=== PATIENT | male | born 1990 | race Caucasian/White ===

== ENCOUNTER 2017-10-27 10:12 | Emergency (ER) | payer OTHER ==
[~2017-10-27] VITALS: Ht 180.3 cm; Wt 99.8 kg
[~2017-10-27 10:12] MED LIST: ALBUTEROL INH INH; HYDROCODONE-AP1 EAC6 PO; LISINOPRIL10 MG; PHENERGAN 25 MG25 M1 PO; PREDNISONE50 MG PO; PRILOSEC 20 MG20 MG PO; PROAIR HFA8.5 GM IH; PROZAC 20 MG20 M1 PO; PROZAC20 MG; RESTORIL; STRATTERA PO; VALIUM5 MG PO; VISTARIL 25 MG25 M1 PO; ZOFRAN ODT4 MG PO; [UNRECOGNIZED DRUG - OTHER] PO
[2017-10-27] MEDS ORDERED: ZOLOFT100 MG PO (10:35)
[2017-10-27] MEDS ORDERED: METOPROLOL SUCC25 M1 PO (10:36)
[2017-10-27] MEDS ORDERED: QUETIAPINE FUM100 MG PO (10:36)
[2017-10-27] MEDS ORDERED: HYDROCODONE-AP1 EAC6 PO (12:29)
[2017-10-27] MEDS ORDERED: IBUPROFEN 600600 M1 PO (12:30)
[2017-10-27 12:56] VITALS: BP 142/98
== END 2017-10-27 12:57 | disposition home or self-care (01) ==
LOC: M.ERS 10:12
DX: M79.671 Pain in right foot (principal); J45.909 Unspecified asthma, uncomplicated; I10 Essential (primary) hypertension; F41.9 Anxiety disorder, unspecified; F17.210 Nicotine dependence, cigarettes, uncomplicated

== ENCOUNTER 2018-10-05 22:11 | Emergency (ER) | payer OTHER ==
[~2018-10-05] VITALS: Ht 182.9 cm; Wt 97.5 kg
[~2018-10-05 22:11] MED LIST changes: +IBUPROFEN 600600 M1 PO; +METOPROLOL SUCC25 M1 PO; +QUETIAPINE FUM100 MG PO; +ZOLOFT100 MG PO
[2018-10-05] MEDS ORDERED: OXYBUTYNIN 5 MG5 M2 PO (22:34)
[2018-10-05] MEDS ORDERED: OXYCODONE HCL 55 MG PO (22:34)
[2018-10-05] MEDS ORDERED: FLOMAX0.4 MG PO (22:34)
[2018-10-05 23:36] LABS: URINE BILIRUBIN NEGATIVE (Negative); URINE BLOOD 3+ (Negative); URINE CLARITY CLEAR; URINE COLOR YELLOW; URINE GLUCOSE-RANDOM NEGATIVE (Negative); URINE KETONES NEGATIVE (Negative); URINE LEUKOCYTES-REFLEX TRACE (Negative); URINE NITRITE-REFLEX NEGATIVE (Negative); URINE PROTEIN 1+ (Negative); URINE UROBILINOGEN 0.2 E.U./dl (0.2-1.0)
[2018-10-06 00:10] LABS: INFLUENZA A ANTIGEN None Detected (None Detect); INFLUENZA B ANTIGEN None Detected (None Detect)
[2018-10-06 00:13] LABS: CASTS None Seen /LPF (None Seen); SQUAMOUS NONE SEEN /LPF (0-3)
[2018-10-06 00:14] LABS: BACTERIA-REFLEX 1-9 Few /HPF (None Seen); URINE RBC >20 Many /HPF (0-2); URINE WBC-REFLEX 0-5 Rare /HPF (0-5)
[2018-10-06 00:16] LABS: CRYSTALS None Seen /LPF (None Seen)
[2018-10-06] MEDS ORDERED: KEFLEX500 M1 PO (00:21)
[2018-10-06] MEDS ORDERED: ZOFRAN 4 MG ORAL4 MG PO (00:21)
[2018-10-06] MEDS ORDERED: NORCO 5-325 TA1 EACH PO ×2 (00:21)
[2018-10-06 00:37] VITALS: BP 143/94
== END 2018-10-06 00:37 | disposition home or self-care (01) ==
LOC: M.ERS 22:11
PROVIDERS: Nurse Practitioner Psychiatric/Mental Health
DX: N39.0 Urinary tract infection, site not specified (principal); J00 Acute nasopharyngitis [common cold]; J45.909 Unspecified asthma, uncomplicated; F17.210 Nicotine dependence, cigarettes, uncomplicated; F41.0 Panic disorder [episodic paroxysmal anxiety]; I10 Essential (primary) hypertension; Z87.442 Personal history of urinary calculi

== ENCOUNTER 2018-10-24 01:52 | Emergency (ER) | payer OTHER ==
[~2018-10-24] VITALS: Ht 182.9 cm; Wt 93.0 kg
[~2018-10-24 01:52] MED LIST changes: +FLOMAX0.4 MG PO; +KEFLEX500 M1 PO; +NORCO 5-325 TA1 EACH PO; +OXYBUTYNIN 5 MG5 M2 PO; +OXYCODONE HCL 55 MG PO; +ZOFRAN 4 MG ORAL4 MG PO
[2018-10-24] MEDS ORDERED: ADDERALL 20 MG20 M1 (02:10)
[2018-10-24] MEDS ORDERED: VALIUM5 MG (02:10)
[2018-10-24] MEDS ORDERED: SEROQUEL XR150 MG (02:11)
[2018-10-24 02:27] LABS: ABSOLUTE EOSINOPHILS 0.3 thou/uL (0.0-0.7); ABSOLUTE LYMPHOCYTES 3.3 thou/uL (0.8-5.3); ABSOLUTE MONOCYTES 0.5 thou/uL (0.0-1.2); ABSOLUTE NEUTROPHILS 3.1 thou/uL (1.6-8.1); BASOPHILS 0.6 %; EOSINOPHILS 3.7 %; HEMATOCRIT 40.9 % (42.0-52.0); LYMPHOCYTES 46.3 %; MCH 31.4 pg (26.0-34.0); MCHC 34.2 g/dL (28.0-37.0); MCV 91.8 fL (80.0-100.0); MONOCYTES 6.4 %; MPV 10.1 fl. (7.2-11.1); NUCLEATED RBCS 0 /100WBC; PLATELET COUNT* 256 thou/uL (150-400); RBC 4.46 mil/uL (4.50-6.00); RDW-CV 12.7 % (10.5-14.5); WBC 7.1 thou/uL (4.0-11.0)
[2018-10-24 02:30] LABS: URINE BILIRUBIN NEGATIVE (Negative); URINE BLOOD 3+ (Negative); URINE CLARITY CLEAR; URINE COLOR YELLOW; URINE GLUCOSE-RANDOM NEGATIVE (Negative); URINE KETONES 1+ (Negative); URINE LEUKOCYTES-REFLEX NEGATIVE (Negative); URINE NITRITE-REFLEX NEGATIVE (Negative); URINE PROTEIN 2+ (Negative); URINE SPECIFIC GRAVITY >= 1.030 (1.005-1.030); URINE UROBILINOGEN 0.2 E.U./dl (0.2-1.0)
[2018-10-24 02:34] LABS: ALBUMIN 3.5 g/dL (3.4-5.0); CALCIUM 8.7 mg/dL (8.5-10.1); CREATININE 1.1 mg/dL (0.6-1.3); POTASSIUM 3.7 mmol/L (3.5-5.1); TOTAL BILIRUBIN 0.2 mg/dL (<0.1-1.0); TOTAL PROTEIN 6.6 g/dL (6.4-8.2)
[2018-10-24 02:48] LABS: BACTERIA-REFLEX 1-9 Few /HPF (None Seen); CASTS None Seen /LPF (None Seen); CRYSTALS None Seen /LPF (None Seen); MUCUS 0-3 Light strn/LPF (None Seen); SQUAMOUS 0-3 Few /LPF (0-3); URINE RBC >20 Many /HPF (0-2); URINE WBC-REFLEX 0-5 Rare /HPF (0-5)
[2018-10-24] MEDS ORDERED: PERCOCET 5-3251 EACH PO (03:40)
[2018-10-24 04:05] VITALS: BP 116/66
== END 2018-10-24 04:05 | disposition home or self-care (01) ==
LOC: M.ERS 01:52
PROVIDERS: Family Medicine
DX: R10.9 Unspecified abdominal pain (principal); R11.2 Nausea with vomiting, unspecified; F17.210 Nicotine dependence, cigarettes, uncomplicated; J45.909 Unspecified asthma, uncomplicated; I10 Essential (primary) hypertension; F41.0 Panic disorder [episodic paroxysmal anxiety]; Z87.442 Personal history of urinary calculi

== ENCOUNTER 2018-12-19 19:59 | Emergency (ER) | payer OTHER ==
[~2018-12-19] VITALS: Ht 182.9 cm; Wt 93.0 kg
[~2018-12-19 19:59] MED LIST changes: +ADDERALL 20 MG20 M1; +PERCOCET 5-3251 EACH PO; +SEROQUEL XR150 MG; +VALIUM5 MG
[2018-12-19 21:02] LABS: URINE BLOOD NEGATIVE (Negative); URINE CLARITY CLEAR; URINE COLOR YELLOW; URINE GLUCOSE-RANDOM NEGATIVE (Negative); URINE KETONES 2+ (Negative); URINE LEUKOCYTES-REFLEX NEGATIVE (Negative); URINE NITRITE-REFLEX NEGATIVE (Negative); URINE PROTEIN NEGATIVE (Negative); URINE UROBILINOGEN 0.2 E.U./dl (0.2-1.0)
[2018-12-19 21:03] LABS: URINE BILIRUBIN 1+ (Negative)
[2018-12-19 21:05] LABS: ICTOTEST (BILI CONFIRMATORY) Negative (Negative)
[2018-12-19 21:06] VITALS: BP 130/92
[2018-12-19 21:10] LABS: AMP/METHAMP Negative (Negative); BARBITURATES Negative (Negative); BENZODIAZEPINES POSITIVE (Negative); COCAINE Negative (Negative); METHADONE Negative (Negative); OPIATES Negative (Negative); PCP Negative (Negative); THC Negative (Negative)
== END 2018-12-19 21:06 | disposition home or self-care (01) ==
LOC: M.ERS 19:59
PROVIDERS: Physician Assistant
DX: F41.0 Panic disorder [episodic paroxysmal anxiety] (principal); I10 Essential (primary) hypertension; J45.909 Unspecified asthma, uncomplicated; F17.210 Nicotine dependence, cigarettes, uncomplicated; Z87.442 Personal history of urinary calculi; Z79.899 Other long term (current) drug therapy

== ENCOUNTER 2019-09-11 13:59 | Emergency (ER) | payer OTHER ==
[~2019-09-11] VITALS: Ht 182.9 cm; Wt 79.4 kg
[2019-09-11] MEDS ORDERED: TYLENOL WITH CO1 TA1 PO (16:09)
[2019-09-11] MEDS ORDERED: KEFLEX500 M1 PO (16:09)
[2019-09-11 16:29] VITALS: BP 136/78
== END 2019-09-11 16:30 | disposition home or self-care (01) ==
LOC: M.ERS 13:59
DX: S61.422A Laceration with foreign body of left hand, initial encounter (principal); I10 Essential (primary) hypertension; F41.9 Anxiety disorder, unspecified; J45.909 Unspecified asthma, uncomplicated; F17.210 Nicotine dependence, cigarettes, uncomplicated; Z87.442 Personal history of urinary calculi; W26.8XXA Contact with other sharp object(s), not elsewhere classified, initial encounter; Y92.89 Other specified places as the place of occurrence of the external cause; Y93.89 Activity, other specified; Y99.8 Other external cause status

== ENCOUNTER 2020-09-13 00:58 | Emergency (ER) | payer OTHER ==
[~2020-09-13] VITALS: Ht 182.9 cm; Wt 70.3 kg
[~2020-09-13 00:58] MED LIST changes: +TYLENOL WITH CO1 TA1 PO
[2020-09-13 03:15] VITALS: BP 155/87
== END 2020-09-13 03:15 | disposition home or self-care (01) ==
LOC: M.ERS 00:58
DX: S61.210A Laceration without foreign body of right index finger without damage to nail, initial encounter (principal); F17.210 Nicotine dependence, cigarettes, uncomplicated; J45.909 Unspecified asthma, uncomplicated; I10 Essential (primary) hypertension; W45.8XXA Other foreign body or object entering through skin, initial encounter; Y93.89 Activity, other specified; Y92.89 Other specified places as the place of occurrence of the external cause; Y99.9 Unspecified external cause status

== ENCOUNTER 2021-03-18 19:13 | Emergency (ER) | payer OTHER ==
[~2021-03-18] VITALS: Ht 185.4 cm; Wt 81.7 kg
[2021-03-18 19:17] VITALS: BP 157/105
[2021-03-18 19:27] LABS: URINE BILIRUBIN NEGATIVE (Negative); URINE BLOOD NEGATIVE (Negative); URINE CLARITY CLEAR; URINE COLOR YELLOW; URINE GLUCOSE-RANDOM NEGATIVE (Negative); URINE KETONES NEGATIVE (Negative); URINE LEUKOCYTES-REFLEX NEGATIVE (Negative); URINE NITRITE-REFLEX NEGATIVE (Negative); URINE PROTEIN NEGATIVE (Negative); URINE SPECIFIC GRAVITY 1.015 (1.005-1.030); URINE UROBILINOGEN 0.2 E.U./dl (0.2-1.0)
[2021-03-18] MEDS ORDERED: FLOMAX0.4 MG PO (23:07)
[2021-03-18] MEDS ORDERED: ZOFRAN ODT4 MG PO (23:07)
[2021-03-18] MEDS ORDERED: ACETAMINOPHEN-1 EAC2 PO (23:07)
[2021-03-18] MEDS ORDERED: TORADOL 10 MG T10 MG PO (23:10)
== END 2021-03-18 23:36 | disposition home or self-care (01) ==
LOC: M.ERS 19:13
PROVIDERS: Personal Emergency Response Attendant
DX: R10.11 Right upper quadrant pain (principal); J45.909 Unspecified asthma, uncomplicated; I12.9 Hypertensive chronic kidney disease with stage 1 through stage 4 chronic kidney disease, or unspecified chronic kidney disease; N18.30 Chronic kidney disease, stage 3 unspecified; F17.210 Nicotine dependence, cigarettes, uncomplicated

== ENCOUNTER 2021-03-24 22:25 | Emergency (ER) | payer OTHER ==
[~2021-03-24] VITALS: Ht 182.9 cm; Wt 81.7 kg
[~2021-03-24 22:25] MED LIST changes: +ACETAMINOPHEN-1 EAC2 PO; +TORADOL 10 MG T10 MG PO
[2021-03-24 23:02] LABS: URINE BILIRUBIN NEGATIVE (Negative); URINE BLOOD NEGATIVE (Negative); URINE CLARITY CLEAR; URINE COLOR YELLOW; URINE GLUCOSE-RANDOM NEGATIVE (Negative); URINE KETONES NEGATIVE (Negative); URINE LEUKOCYTES-REFLEX NEGATIVE (Negative); URINE NITRITE-REFLEX NEGATIVE (Negative); URINE PROTEIN NEGATIVE (Negative); URINE UROBILINOGEN 0.2 E.U./dl (0.2-1.0)
[2021-03-24 23:10] LABS: AMP/METHAMP Negative (Negative); BARBITURATES Negative (Negative); BENZODIAZEPINES POSITIVE (Negative); COCAINE Negative (Negative); METHADONE Negative (Negative); OPIATES POSITIVE (Negative); PCP Negative (Negative); THC POSITIVE (Negative)
[2021-03-24 23:14] LABS: HEMOGLOBIN 13.4 gm/dL (14.0-18.0); MCH 31.1 pg (26.0-34.0); MCHC 33.5 g/dL (28.0-37.0); MCV 92.7 fL (80.0-100.0); MPV 8.6 fl. (7.2-11.1); RBC 4.32 mil/uL (4.50-6.00); RDW-CV 13.8 % (10.5-14.5); WBC 6.1 thou/uL (4.0-11.0)
[2021-03-24 23:28] LABS: CALCIUM 8.6 mg/dL (8.5-10.1); CREATININE 0.9 mg/dL (0.6-1.3); POTASSIUM 3.9 mmol/L (3.5-5.1)
[2021-03-24 23:32] LABS: ALBUMIN 3.8 g/dL (3.4-5.0); TOTAL BILIRUBIN 0.6 mg/dL (<0.1-1.0); TOTAL PROTEIN 6.6 g/dL (6.4-8.2)
[2021-03-25] MEDS ORDERED: ZOFRAN ODT4 MG PO (00:08)
[2021-03-25] MEDS ORDERED: IBUPROFEN 800800 M1 PO (00:08)
[2021-03-25 00:13] VITALS: BP 135/89
== END 2021-03-25 00:13 | disposition home or self-care (01) ==
LOC: M.ERS 22:25
PROVIDERS: Personal Emergency Response Attendant
DX: R10.10 Upper abdominal pain, unspecified (principal); J45.909 Unspecified asthma, uncomplicated; N28.9 Disorder of kidney and ureter, unspecified; F41.9 Anxiety disorder, unspecified; I10 Essential (primary) hypertension; F17.210 Nicotine dependence, cigarettes, uncomplicated

== ENCOUNTER 2021-04-15 22:21 | Emergency (ER) | payer OTHER ==
[~2021-04-15] VITALS: Ht 182.9 cm; Wt 80.7 kg
[~2021-04-15 22:21] MED LIST changes: +IBUPROFEN 800800 M1 PO
[2021-04-15] MEDS ORDERED: PROAIR HFA8.5 GM (22:33)
[2021-04-15 22:34] VITALS: BP 161/105
== END 2021-04-16 00:39 | disposition home or self-care (01) ==
LOC: M.ERS 22:21
DX: B34.9 Viral infection, unspecified (principal); Z20.822 Contact with and (suspected) exposure to COVID-19; R50.9 Fever, unspecified; J45.909 Unspecified asthma, uncomplicated; F41.9 Anxiety disorder, unspecified; I10 Essential (primary) hypertension; Z79.899 Other long term (current) drug therapy; F17.210 Nicotine dependence, cigarettes, uncomplicated

== ENCOUNTER 2021-06-17 16:52 | Emergency (ER) | payer OTHER, MEDICAID ==
[~2021-06-17] VITALS: Ht 180.3 cm; Wt 73.5 kg
[~2021-06-17 16:52] MED LIST changes: +PROAIR HFA8.5 GM
[2021-06-17 17:19] LABS: URINE BILIRUBIN NEGATIVE (Negative); URINE BLOOD NEGATIVE (Negative); URINE CLARITY CLEAR; URINE COLOR YELLOW; URINE GLUCOSE-RANDOM NEGATIVE (Negative); URINE KETONES NEGATIVE (Negative); URINE LEUKOCYTES-REFLEX TRACE (Negative); URINE NITRITE-REFLEX NEGATIVE (Negative); URINE PROTEIN TRACE (Negative); URINE SPECIFIC GRAVITY >= 1.030 (1.005-1.030); URINE UROBILINOGEN 0.2 E.U./dl (0.2-1.0)
[2021-06-17 17:26] LABS: SQUAMOUS 0-3 Few /LPF (0-3); URINE WBC-REFLEX 0-5 Rare /HPF (0-5)
[2021-06-17 17:27] LABS: BACTERIA-REFLEX 1-9 Few /HPF (None Seen); CASTS None Seen /LPF (None Seen); CRYSTALS None Seen /LPF (None Seen); MUCUS 4-6 Moderate strn/LPF (None Seen); URINE RBC 0-2 Rare /HPF (0-2)
[2021-06-17 18:44] LABS: ABSOLUTE EOSINOPHILS 0.1 thou/uL (0.0-0.7); ABSOLUTE LYMPHOCYTES 1.8 thou/uL (0.8-5.3); ABSOLUTE MONOCYTES 0.4 thou/uL (0.0-1.2); BASOPHILS 0.7 %; EOSINOPHILS 0.8 %; HEMATOCRIT 47.6 % (42.0-52.0); LYMPHOCYTES 24.3 %; MCH 30.9 pg (26.0-34.0); MCHC 33.7 g/dL (28.0-37.0); MCV 91.7 fL (80.0-100.0); MONOCYTES 5.6 %; MPV 9.1 fl. (7.2-11.1); NUCLEATED RBCS 0 /100WBC; PLATELET COUNT* 281 thou/uL (150-400); POLYS 68.6 %; RBC 5.19 mil/uL (4.50-6.00); RDW-CV 13.1 % (10.5-14.5); WBC 7.3 thou/uL (4.0-11.0)
[2021-06-17 18:52] LABS: CALCIUM 8.8 mg/dL (8.5-10.1); CREATININE 0.8 mg/dL (0.6-1.3); POTASSIUM 3.8 mmol/L (3.5-5.1)
[2021-06-17 18:56] LABS: ALBUMIN 4.5 g/dL (3.4-5.0); TOTAL BILIRUBIN 0.5 mg/dL (<0.1-1.0)
[2021-06-17] MEDS ORDERED: CIPRO500 M1 PO (20:09)
[2021-06-17] MEDS ORDERED: IBUPROFEN 800800 M1 PO (20:09)
[2021-06-17] MEDS ORDERED: DICYCLOMINE HCL20 MG PO (20:09)
[2021-06-17 20:22] VITALS: BP 123/65
== END 2021-06-17 20:23 | disposition home or self-care (01) ==
LOC: M.ERS 16:52
PROVIDERS: Nurse Practitioner Family
DX: N39.0 Urinary tract infection, site not specified (principal); R10.84 Generalized abdominal pain; J45.909 Unspecified asthma, uncomplicated; F41.9 Anxiety disorder, unspecified; I10 Essential (primary) hypertension; F41.0 Panic disorder [episodic paroxysmal anxiety]; F17.210 Nicotine dependence, cigarettes, uncomplicated